=== PATIENT | female | born 1970 ===

== ENCOUNTER 2018-03-23 11:38 | Outpatient (CLI) | payer OTHER ==
[~2018-03-23 11:38] MED LIST: ADVAIR 100-501 EACH IH; BACITRACIN15 GM TP; LEVAQUIN500 MG PO; LIPITOR40 MG PO; OXYC1TAB9 PO; PROVENTIL HFA6.7 GM IH; SINGULAIR10 MG PO; VERAPAMIL ER120 MG PO; ZOLOFT50 MG PO; ZYRTEC10 M3 PO; [UNRECOGNIZED DRUG - OTHER] PO
== END 2018-03-23 15:06 | disposition home or self-care (01) ==
LOC: RAD 11:38
DX: L91.0 Hypertrophic scar (principal)

== ENCOUNTER 2018-03-26 05:20 | Day surgery (SDC) | payer OTHER | END 2018-03-26 14:14 | disposition home or self-care (01) | LOC: CIR.AMB 05:20 | DX: L91.0 Hypertrophic scar (principal) ==